=== PATIENT | male | born 1935 | race Caucasian/White ===

== ENCOUNTER 2018-03-18 01:05 | Emergency (ER) | payer MEDICARE ==
[~2018-03-18] VITALS: Ht 172.7 cm; Wt 91.8 kg
[2018-03-18 01:10] VITALS: BP 117/62; PULSE 77; RESP 20; TEMP 99; O2SAT 99
[2018-03-18] MEDS ORDERED: ASPI-516 CHEW (01:31)
[2018-03-18] MEDS ORDERED: TAMS5CAP PO (01:31)
--- NOTE | 2018-03-18 01:50 | RADRPT ---
EXAM DATE: 03/18/2018 1:46 AM EDT AGE/SEX: 82 years / Male INDICATIONS: Constipation, abdominal pain for 3 days CLINICAL DATA: This is the patient's initial encounter. Patient reports that signs and symptoms have been present for 3 days and indicates a pain score of 8/10. MEDICAL/SURGICAL HISTORY: Carcinoma, lung. None. COMPARISON: No prior [facility] exams available for comparison. FINDINGS: No bowel distention demonstrated. Moderate amount of stool throughout the colon. No free air. Apparent previous left inguinal hernia repair. CONCLUSION: Benign-appearing abdomen. Moderate stool in the colon. Electronically signed by: Baudilio Ramesh MD 03/18/2018 1:48 AM EDT
[2018-03-18] MEDS ORDERED: SODIUM CHLOR 0.9% 1000 ML INJ 1,000 ML IV SCH (02:17)
[2018-03-18] MEDS ORDERED: SODIUM CHLORIDE 0.9% FLUSH 10 ML FLUSH IV FLUSH PRN (02:30)
[2018-03-18] MEDS ORDERED: MORPHINE SULFATE 2 MG/ML SYRINGE IV PUSH ONE (02:30)
[2018-03-18] MEDS ORDERED: ONDANSETRON HCL 4 MG/2 ML VIAL IVP ONE (02:30)
[2018-03-18 02:37] VITALS: O2SAT 100
[2018-03-18 02:44] VITALS: BP 112/58; PULSE 66; RESP 18; O2SAT 99
[2018-03-18 02:49] LABS: AUTOMATED NEUTROPHIL # 11.3 TH/MM3 (1.8-7.7); BASOPHIL % 0.1 % (0.0-2.0); EOSINOPHIL % 0.1 % (0.0-4.0); HEMATOCRIT 28.8 % (39.0-51.0); HEMOGLOBIN 9.6 GM/DL (13.0-17.0); LYMPH % 4.1 % (9.0-44.0); LYMPHOCYTE # 0.5 TH/MM3 (1.0-4.8); MEAN CELL VOLUME 104.4 FL (80.0-100.0); MEAN CORPUSCULAR HEMOGLOBIN 34.7 PG (27.0-34.0); MEAN CORPUSCULAR HGB CONC 33.3 % (32.0-36.0); MEAN PLATELET VOLUME 6.2 FL (7.0-11.0); MONO % 0.9 % (0.0-8.0); MONOCYTE # 0.1 TH/MM3 (0-0.9); NEUT % 94.8 % (16.0-70.0); PLATELET COUNT 276 TH/MM3 (150-450); RED BLOOD COUNT 2.76 MIL/MM3 (4.50-5.90); RED CELL DISTRIBUTION WIDTH 14.7 % (11.6-17.2); WHITE BLOOD COUNT 11.9 TH/MM3 (4.0-11.0)
--- NOTE | 2018-03-18 02:53 | PD ---
HPI Chief Complaint: GI Complaint Time Seen by Provider: 01:22 Travel History International Travel<30 days: No Contact w/Intl Traveler<30days: No Traveled to known affect area: No History of Present Illness HPI 82-year-old male presents to the emergency department for complaint of constipation since Tuesday. Patient recently started on new narcotic medication. Patient denies previous history of constipation. Patient takes Lyrica for chronic pain syndrome. Patient has had no flatus and has noted since Tuesday evening decreased urine output. Patient denies fever chills. Patient did use a fleets enema without symptom relief. Patient has noted liquid stool since taking the fleets enema but is also had some streaks of blood. No report of mucoid or bloody stool or explosive flatus. No recent antibiotic use. Patient complains of abdominal pain and distention. Patient rates pain as moderate to severe. Patient states has urged to have bowel movement but is unable to pass a bowel movement successfully. Patient rates pain as 10/10. Patient's had no nausea or vomiting. No report of chest pain or shortness of breath or sweats or near syncope or syncope. Patient takes low- dose aspirin daily no other blood thinning agents with history of CAD CABG cardiac catheterization stent placement lung cancer knee surgery enlarged prostate and chronic musculoskeletal pain. PFSH Past Medical History Narrative Medical CAD cardiac catheterization CABG lung cancer knee surgery chronic musculoskeletal pain lumbar disc disease enlarged prostate; no tobacco use no alcohol use; nursing notes reviewed Cancer: Yes (lung) Cardiac Catheterization: Yes Cardiovascular Problems: Yes Chemotherapy: Yes Coronary Artery Disease: Yes Diminished Hearing: No Genitourinary: Yes (prostate) Herniated Disk: Yes Musculoskeletal: Yes Tetanus Vaccination: Unknown Influenza Vaccination: No Past Surgical History Cardiac Surgery: Yes Coronary Artery Bypass Graft: Yes Joint Replacement: Yes (lt knee) Social History Alcohol Use: No Tobacco Use: No Substance Use: No Allergies-Medications (Allergen,Severity, Reaction): Coded Allergies: No Known Allergies (Verified Allergy, Unknown, 03/18/18) Reported Meds & Prescriptions Reported Meds & Active Scripts Active Reported Flomax (Tamsulosin HCl) 0.4 Mg Cap 0.4 Mg PO HS Aspirin 81 Mg Chew 81 Mg CHEW DAILY Review of Systems Except as stated in HPI: all other systems reviewed are Neg General / Constitutional: No: Fever, Chills HENT: No: Congestion Cardiovascular: No: Chest Pain or Discomfort Respiratory: No: Shortness of Breath Gastrointestinal: Positive: Abdominal Pain, Constipation, No: Nausea, Vomiting , Diarrhea, Hematemesis, Hematochezia Genitourinary: Positive: Decreased Urinary Output, Hesitancy, No: Dysuria Musculoskeletal: No: Myalgias, Arthralgias Skin: No Rash Neurologic: No: Weakness, Dizziness, Syncope Psychiatric: No: Anxiety Hematologic/Lymphatic: No: Easy Bruising Physical Exam Narrative GENERAL: Well-developed well-nourished nourished elderly male in obvious discomfort leaning across exam counter SKIN: Warm and dry. HEAD: Normocephalic. EYES: No scleral icterus. No injection or drainage. NECK: Supple, trachea midline. No JVD or lymphadenopathy. CARDIOVASCULAR: Regular rate and rhythm without murmurs, gallops, or rubs. RESPIRATORY: Breath sounds equal bilaterally. No accessory muscle use. GASTROINTESTINAL: Abdomen soft, diffusely tender to palpation without guarding or rebound, mild suprapubic distended. Rectal exam large bolus of stool in the rectal vault requiring partial digital disimpaction some streaks of blood noted on stool no melena no hematochezia; Hemoccult is positive. MUSCULOSKELETAL: No cyanosis, or edema. BACK: Nontender without obvious deformity. No CVA tenderness. Data Data Last Documented VS Vital Signs Date Time Temp Pulse Resp B/P (MAP) Pulse Ox O2 Delivery O2 Flow Rate FiO2 03/18/18 02:44 66 18 112/58 (76) 99 Room Air 03/18/18 01:10 99.0 Orders Orders Abdomen, Flat & Upright (03/18/18 ) Complete Blood Count With Diff (03/18/18 02:17) Comprehensive Metabolic Panel (03/18/18 02:17) Lipase (03/18/18 02:17) Prothrombin Time / Inr (Pt) (03/18/18 02:17) Act Partial Throm Time (Ptt) (03/18/18 02:17) Urinalysis - C+S If Indicated (03/18/18 02:17) Ct Abd/Pel W Iv Contrast(Rout) (03/18/18 02:17) Iv Access Insert/Monitor (03/18/18 02:17) Ecg Monitoring (03/18/18 02:17) Oximetry (03/18/18 02:17) Ondansetron Inj (Zofran Inj) (03/18/18 02:30) Sodium Chlor 0.9% 1000 Ml Inj (Ns 1000 M (03/18/18 02:17) Sodium Chloride 0.9% Flush (Ns Flush) (03/18/18 02:30) Morphine Inj (Morphine Inj) (03/18/18 02:30) Urinary Catheter Insert/Apply (03/18/18 02:53) Iohexol 350 Inj (Omnipaque 350 Inj) (03/18/18 03:22) Sodium Chlorid 0.9% 500 Ml Inj (Ns 500 M (03/18/18 03:45) Bag, Leg 32oz Sterile Large Ea (03/18/18 03:32) Fleets Enema (Adult) (Fleets Enema (Adul (03/18/18 04:30) Ed Discharge Order (03/18/18 04:21) Labs Laboratory Tests Test 03/18/18 02:30 03/18/18 03:00 White Blood Count 11.9 TH/MM3 Red Blood Count 2.76 MIL/MM3 Hemoglobin 9.6 GM/DL Hematocrit 28.8 % Mean Corpuscular Volume 104.4 FL Mean Corpuscular Hemoglobin 34.7 PG Mean Corpuscular Hemoglobin Concent 33.3 % Red Cell Distribution Width 14.7 % Platelet Count 276 TH/MM3 Mean Platelet Volume 6.2 FL Neutrophils (%) (Auto) 94.8 % Lymphocytes (%) (Auto) 4.1 % Monocytes (%) (Auto) 0.9 % Eosinophils (%) (Auto) 0.1 % Basophils (%) (Auto) 0.1 % Neutrophils # (Auto) 11.3 TH/MM3 Lymphocytes # (Auto) 0.5 TH/MM3 Monocytes # (Auto) 0.1 TH/MM3 Eosinophils # (Auto) 0.0 TH/MM3 Basophils # (Auto) 0.0 TH/MM3 CBC Comment DIFF FINAL Differential Comment Prothrombin Time 10.7 SEC Prothromb Time International Ratio 1.1 RATIO Activated Partial Thromboplast Time 22.1 SEC Blood Urea Nitrogen 32 MG/DL Creatinine 1.40 MG/DL Random Glucose 123 MG/DL Total Protein 6.8 GM/DL Albumin 3.5 GM/DL Calcium Level 8.9 MG/DL Alkaline Phosphatase 60 U/L Aspartate Amino Transf (AST/SGOT) 21 U/L Alanine Aminotransferase (ALT/SGPT) 18 U/L Total Bilirubin 0.6 MG/DL Sodium Level 139 MEQ/L Potassium Level 4.5 MEQ/L Chloride Level 106 MEQ/L Carbon Dioxide Level 24.7 MEQ/L Anion Gap 8 MEQ/L Estimat Glomerular Filtration Rate 49 ML/MIN Lipase 65 U/L Urine Color YELLOW Urine Turbidity CLEAR Urine pH 5.5 Urine Specific [place] 1.010 Urine Protein NEG mg/dL Urine Glucose (UA) NEG mg/dL Urine Ketones NEG mg/dL Urine Occult Blood NEG Urine Nitrite NEG Urine Bilirubin NEG Urine Urobilinogen 0.2 MG/DL Urine Leukocyte Esterase NEG Urine RBC 0-3 /hpf Urine Squamous Epithelial Cells 0-5 /hpf Microscopic Urinalysis Comment CATH-CULT NOT IND MDM Medical Decision Making Medical Screen Exam Complete: Yes Emergency Medical Condition: Yes Medical Record Reviewed: Yes Interpretation(s) CBC & BMP Diagram 03/18/18 02:30 Total Protein 6.8, Albumin 3.5, Calcium Level 8.9, Alkaline Phosphatase 60, Aspartate Amino Transf (AST/SGOT) 21, Alanine Aminotransferase (ALT/SGPT) 18, Total Bilirubin 0.6 Vital Signs Date Time Temp Pulse Resp B/P (MAP) Pulse Ox O2 Delivery O2 Flow Rate FiO2 03/18/18 02:44 66 18 112/58 (76) 99 Room Air 03/18/18 02:37 100 03/18/18 01:10 99.0 77 20 117/62 (80) 99 UA: wnl coags: wnl Last Impressions Abdomen/Pelvis CT 03/18/18 0217 Impressions: CONCLUSION: 1. No obstruction or acute inflammatory changes are demonstrated. Sigmoid colo n diverticulosis without diverticulitis. 2. Nonobstructing stones of both kidneys. 3. Moderate to large stool focally in the colon at the level of the rectum and cecum. Nonobstructive pattern. 4. Borderline nonspecific splenomegaly. 5. Small pleural effusion at the right lung base. Abdomen X-Ray 03/18/18 0000 Signed Impressions: CONCLUSION: Benign-appearing abdomen. Moderate stool in the colon. Differential Diagnosis Constipation obstipation diverticulitis intestinal mass bowel obstruction UTI urinary retention obstructive uropathy; also to consider ischemic bowel Narrative Course Bedside disimpaction of large amount of stool performed with some streaks of blood noted on the stool no reported symptomatic relief flat and upright imaging study shows large amount of stool but no bowel obstruction pattern or subdiaphragmatic free air Patient continues to complain of pain CBC and metabolic panel urinalysis specimens collected patient given IV Toradol and 2 mg of IV morphine as well as Zofran 4 mg IV and maintenance IV fluids at [address] abdomen and pelvis ordered bladder scan ordered to evaluate and assess for urinary retention patient has 890 cc bladder consistent with urinary retention urinary catheter ordered CBC with automated differential mild leukocytosis 11,900 with left shift 94.8% neutrophils patient is anemic with hemoglobin of 9.6 hematocrit 28.8% on rectal exam patient did have some blood on the stool but no melena or hematochezia; coagulation studies are normal, renal function is mildly decreased with BUN of 32, elevated creatinine of 1.4 elevated random glucose is 123 urinalysis is normal Patient with Powell catheter inserted due to urinary retention with good urine output urinalysis is normal Vital signs remained stable At 3:35 AM patient has returned from CT results CT resulted identifies moderate stool in the bowel without obstruction diverticulosis without diverticulitis bilateral nephrolithiasis without obstruction and small pleural effusion right lung base. Patient with history of bedside informed of lab results imaging results and is stable for outpatient management. Prior to discharge patient given a one-time fleets enema. Patient given directions on urinary catheter management. 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: Dr Ann Patient Instructions: General Instructions, Narcotic given in the ED Additional Instructions: Increase fluid hydration Add dietary fiber and to dietary intake May use MiraLAX per package directions over the next 1 week to assist with bowel movements May use fiber supplement such as Fiberall with increased fluid hydration to help with bowel movements Return to the emergency department for any concerns or change in condition Follow-up with your primary care provider call office on Tuesday for follow-up appointment Follow-up with urologist regarding removal of urinary catheter Disposition: 01 DISCHARGE HOME Condition: Stable Susan Allen MD March 18, 2018 02:53
[2018-03-18 02:57] LABS: CHLORIDE 106 MEQ/L (98-107); SODIUM (NA) 139 MEQ/L (136-145)
[2018-03-18 03:00] LABS: CALCIUM 8.9 MG/DL (8.5-10.1)
[2018-03-18 03:01] LABS: ALBUMIN 3.5 GM/DL (3.4-5.0); BICARBONATE 24.7 MEQ/L (21.0-32.0); BLOOD UREA NITROGEN 32 MG/DL (7-18); GLUCOSE,RANDOM 123 MG/DL (74-106)
[2018-03-18 03:02] LABS: INTERNATIONAL NORMALIZED RATIO 1.1 RATIO; PROTHROMBIN TIME - PATIENT 10.7 SEC (9.8-11.6)
[2018-03-18 03:04] LABS: ALT (GPT) 18 U/L (12-78); AST (GOT) 21 U/L (15-37); GLOMERULAR FILTRATION RATE 49 ML/MIN (>89)
[2018-03-18 03:05] LABS: TOTAL BILIRUBIN ADULT 0.6 MG/DL (0.2-1.0); TOTAL PROTEIN 6.8 GM/DL (6.4-8.2)
[2018-03-18 03:07] LABS: ALKALINE PHOSPHATASE 60 U/L (45-117)
[2018-03-18 03:13] LABS: BILIRUBIN, URINE NEG (NEG); BLOOD, URINE NEG (NEG); GLUCOSE,URINE NEG (NEG); KETONE, URINE NEG (NEG); NITRITE,URINE NEG (NEG); PH, URINE 5.5 (5.0-8.5); URINE COLOR YELLOW (YELLW/STRAW); URINE LEUKOCYTE ESTERASE NEG (NEG)
[2018-03-18 03:18] LABS: RBC, URINE 0-3 /hpf (0-3); SQUAMOUS EPITHELIAL CELL URINE 0-5 /hpf (0-5)
[2018-03-18] MEDS ORDERED: IOHEXOL 350 MG/ML 10 ML VIAL (for RAD DIAG) IVCONTRAST ONE (03:22)
[2018-03-18] MEDS ORDERED: SODIUM CHLORID 0.9% 500 ML INJ 500 ML IV ONE (03:45)
--- NOTE | 2018-03-18 04:12 | RADRPT ---
EXAM DATE: 03/18/2018 3:29 AM EDT AGE/SEX: 82 years / Male INDICATIONS: Constipation and abdominal pain. CLINICAL DATA: This is the patient's initial encounter. Patient reports that signs and symptoms have been present for 3 days and indicates a pain score of 5/10. MEDICAL/SURGICAL HISTORY: Cardiovascular disease. Carcinoma, lung. CABG. ORAL CONTRAST: No oral contrast ingested. RADIATION DOSE: 17.74 CTDI (mGy) COMPARISON: No prior [facility] exams available for comparison. TECHNIQUE: Multiple contiguous axial images were obtained through the abdomen and pelvis following b olus infusion of 90 ml Omnipaque 350 (iohexol) nonionic water-soluble contrast as a single exam dos e. No oral contrast ingested. Using automated exposure control and adjustment of the mA and/or kV ac cording to patient size, the radiation dose was kept as low as reasonably achievable to obtain optima l diagnostic quality images. FINDINGS: Borderline splenomegaly, 14 cm craniocaudal. The liver, pancreas and adrenal glands are within normal limits. Small nonobstructing stones are seen of the lower poles of both kidneys. CT appearance of the gallbladder within normal limits. Nonobstructive bowel gas pattern. Moderate to large stool seen in the colon, mostly the rectum and ce cum. There is sigmoid colon diverticulosis. Small pleural effusion seen of the visualized right lung base. No acute bony abnormality demonstrated. No GI tract acute inflammatory changes are seen. CONCLUSION: 1. No obstruction or acute inflammatory changes are demonstrated. Sigmoid colon diverticulosis witho ut diverticulitis. 2. Nonobstructing stones of both kidneys. 3. Moderate to large stool focally in the colon at the level of the rectum and cecum. Nonobstructive pattern. 4. Borderline nonspecific splenomegaly. 5. Small pleural effusion at the right lung base. Electronically signed by: Baudilio Ramesh MD 03/18/2018 4:11 AM EDT
[2018-03-18 04:26] VITALS: BP 140/60; PULSE 65; RESP 18; O2SAT 99
[2018-03-18] MEDS ORDERED: SOD PHOSPHATE/SOD BIPHOSPHATE (ADULT) ENEMA 133ML RECTAL ONE (04:30)
== END 2018-03-18 05:10 | disposition home or self-care (01) ==
LOC: PHED 01:05
DX: K59.00 Constipation, unspecified (principal); R33.8 Other retention of urine; N28.9 Disorder of kidney and ureter, unspecified; D64.9 Anemia, unspecified; N20.0 Calculus of kidney; R10.9 Unspecified abdominal pain; G89.4 Chronic pain syndrome; I25.10 Atherosclerotic heart disease of native coronary artery without angina pectoris; Z85.118 Personal history of other malignant neoplasm of bronchus and lung
CPT/HCPCS: 51702; 74019; 74177; 80053; 81001; 83690; 85025; 85610; 85730; 96361; 96374; 96375; 99285; J2270; J2405; J7030; J7040; Q9967